=== PATIENT | male | born 1995 | race Caucasian/White ===

== ENCOUNTER 2017-04-26 22:14 | Emergency (ER) | payer OTHER ==
[~2017-04-26] VITALS: Ht 185.4 cm; Wt 77.1 kg
--- NOTE | 2017-04-26 23:09 | NUR ---
Dr. Aguilera at bedside for eval.
[2017-04-26] MEDS ORDERED: AZITHROMYCIN 250 MG TABLET PO ONE (23:15)
--- NOTE | 2017-04-26 23:20 | NUR ---
Patient discharged to home in stable conditon. Written and verbal after care instructions given. Patient verbalizes understanding of instructions. Patient left w/ stable gait.
[2017-04-26 23:21] VITALS: BP 107/69
[2017-04-26] MEDS ORDERED: AZITHROMYCIN 250 MG TABLET ONE (23:28)
== END 2017-04-26 23:21 | disposition home or self-care (01) ==
LOC: ER 22:19
DX: J02.9 Acute pharyngitis, unspecified (principal)
CPT/HCPCS: A4663; Q0144